=== PATIENT | female | born 1935 | race Caucasian/White ===

== ENCOUNTER 2017-07-25 18:32 | Emergency (ER) | payer OTHER ==
[~2017-07-25] VITALS: Ht 167.6 cm; Wt 68.0 kg
[~2017-07-25 18:32] MED LIST: ACET325 PO; ACYC200 PO; AMLO5 PO; ATOR20 PO; BISA5EC PO; BLISTEX MEDICAT10 GM TOP; BUSP10 PO; Bisac-Evac10 MG RC; Buspirone HCl30 MG PO; CETI5 PO; CITA20 PO; CLOB.05TC TOP; CLON.1 PO; CLOP75 PO; CONESTTC VAG; CYCL0.05OP BOTHEYES; Citalopram HBr20 MG PO; DOCU100 PO; FLUT.05NI; FLUT44OIA INH; FURO20 PO; Flonase 0.05% N16 GM; HYDCHL25 PO; HYDCOR2.5B TOP; IBUP600 PO; LAVAP17G PO; LIDO2TG30 TOP; NAPR220 PO; NEBI10 PO; OXYB5 PO; OXYC5 PO; PANT40 PO; POLY17UD PO; POTA8 PO; POTCHL10ER PO; PRED10 PO; Prednisone20 MG PO; Prinivil10 MG PO; QUET25 PO; ROXICODONE5 MG PO; SOLI5; SOLI5 PO; TOPI100 PO; TRAM50 PO; Ultram50 MG PO
[2017-07-25] MEDS ORDERED: ALPR.25 PO (18:50)
[2017-07-25] MEDS ORDERED: ATOR40TA PO (18:51)
[2017-07-25] MEDS ORDERED: LISI20 PO (18:53)
[2017-07-25 20:04] LABS: BASOPHILS ABSOLUTE AUTO 0.02 K/mm3 (0.00-0.23); BASOPHILS PERCENT AUTO 0 % (0-2); EOSINOPHILS ABSOLUTE AUTO 0.24 K/mm3 (0.00-0.68); EOSINOPHILS PERCENT AUTO 4 % (0-6); Hematocrit 34.3 % (33.0-51.0); Hemoglobin 10.8 g/dL (11.5-16.0); IMMATURE GRAN ABSOLUTE AUTO 0.02 K/mm3 (0.00-0.10); IMMATURE GRAN PERCENT AUTO 0 % (0-1); LYMPHOCYTES ABSOLUTE AUTO 0.95 K/mm3 (0.84-5.20); LYMPHOCYTES PERCENT AUTO 16 % (21-46); MONOCYTES ABSOLUTE AUTO 0.63 K/mm3 (0.16-1.47); MONOCYTES PERCENT AUTO 10 % (4-13); Mean Corpuscular HGB 27.8 pg (26.0-34.0); Mean Corpuscular HGB Conc 31.5 g/dL (31.5-36.5); Mean Corpuscular Volume 88 fL (80-100); Mean Platelet Volume 10.1 fL (9.1-12.4); NEUTROPHILS ABSOLUTE AUTO 4.23 K/mm3 (1.96-9.15); NEUTROPHILS PERCENT AUTO 70 % (41-73); Platelet Count 199 K/mm3 (150-400); RDW Coefficient Variation 14.3 % (11.7-14.2); Red Blood Cell Count 3.88 M/mm3 (3.80-5.20); White Blood Cell Count 6.09 K/mm3 (4.00-11.30)
[2017-07-25 20:05] LABS: Source, Urine Catheter
[2017-07-25 20:05] LABS: Alanine Aminotransfer (ALT/SGP 15 U/L (12-78); Albumin, Blood 3.9 g/dL (3.4-5.0); Albumin/Globulin Ratio 1.3 (0.8-1.8); Alk Phos 80 U/L (50-136); Anion Gap 6 mmol/L (6-16); Aspartate Aminotrans (AST/SGOT 22 U/L (12-37); Bilirubin, Total 0.5 mg/dL (0.1-1.0); Blood Urea Nitrogen 32 mg/dL (8-24); CO2, Blood 29 mmol/L (21-32); Calcium, Blood 9.2 mg/dL (8.5-10.1); Chloride, Blood 106 mmol/L (98-108); Creatinine, Blood 0.94 mg/dL (0.40-1.00); Glomerular Filtration Rate >60 (60-); Glucose, Blood 119 mg/dL (70-99); Potassium, Blood 3.8 mmol/L (3.5-5.5); Sodium, Blood 141 mmol/L (136-145); Total Protein, Blood 6.9 g/dL (6.4-8.2)
[2017-07-25 20:12] LABS: Bilirubin, Urine Neg (Neg); Blood, Urine Neg (Neg); Glucose Qualitative, Urine Neg (Neg); Ketones, Urine Neg (Neg); Leukocyte Esterase, Urine Neg (Neg); Nitrite, Urine Neg (Neg); Protein, Urine Neg (Neg); Urobilinogen, Urine NORM (Normal)
[2017-07-25 20:18] LABS: International Normalized Ratio 1.05; Prothrombin Time Results 10.9 Sec (9.7-11.5)
[2017-07-25 20:23] LABS: Appearance, Urine Clear (Clear); Color, Urine Pale Yellow (P-Yellow)
== END 2017-07-25 21:58 | disposition home or self-care (01) ==
LOC: ER 18:32
PROVIDERS: Physician Assistant
DX: R41.82 Altered mental status, unspecified (principal); Z79.899 Other long term (current) drug therapy; I10 Essential (primary) hypertension; F03.90 Unspecified dementia, unspecified severity, without behavioral disturbance, psychotic disturbance, mood disturbance, and anxiety; Z86.73 Personal history of transient ischemic attack (TIA), and cerebral infarction without residual deficits; K21.9 Gastro-esophageal reflux disease without esophagitis; E78.00 Pure hypercholesterolemia, unspecified; F41.9 Anxiety disorder, unspecified; Z87.891 Personal history of nicotine dependence
CPT/HCPCS: 36415; 70450; 74019; 80053; 81003; 85025; 85610; 99284

== ENCOUNTER 2017-07-26 12:14 | Emergency (ER) | payer OTHER ==
[~2017-07-26] VITALS: Ht 157.5 cm; Wt 51.7 kg
[~2017-07-26 12:14] MED LIST changes: +ALPR.25 PO; +ATOR40TA PO; +LISI20 PO
[2017-07-26 13:02] LABS: BASOPHILS ABSOLUTE AUTO 0.03 K/mm3 (0.00-0.23); BASOPHILS PERCENT AUTO 1 % (0-2); EOSINOPHILS ABSOLUTE AUTO 0.19 K/mm3 (0.00-0.68); EOSINOPHILS PERCENT AUTO 4 % (0-6); Hematocrit 34.7 % (33.0-51.0); Hemoglobin 10.8 g/dL (11.5-16.0); IMMATURE GRAN ABSOLUTE AUTO 0.01 K/mm3 (0.00-0.10); IMMATURE GRAN PERCENT AUTO 0 % (0-1); LYMPHOCYTES ABSOLUTE AUTO 0.77 K/mm3 (0.84-5.20); LYMPHOCYTES PERCENT AUTO 16 % (21-46); MONOCYTES PERCENT AUTO 11 % (4-13); Mean Corpuscular HGB 27.6 pg (26.0-34.0); Mean Corpuscular HGB Conc 31.1 g/dL (31.5-36.5); Mean Corpuscular Volume 89 fL (80-100); Mean Platelet Volume 10.2 fL (9.1-12.4); NEUTROPHILS PERCENT AUTO 68 % (41-73); Platelet Count 186 K/mm3 (150-400); RDW Coefficient Variation 14.2 % (11.7-14.2); RDW Standard Deviation 45.5 fL (35.1-46.3); Red Blood Cell Count 3.92 M/mm3 (3.80-5.20)
[2017-07-26 13:30] LABS: Alanine Aminotransfer (ALT/SGP 19 U/L (12-78); Albumin, Blood 3.8 g/dL (3.4-5.0); Albumin/Globulin Ratio 1.2 (0.8-1.8); Alk Phos 69 U/L (50-136); Anion Gap 7 mmol/L (6-16); Aspartate Aminotrans (AST/SGOT 19 U/L (12-37); Bilirubin, Total 0.6 mg/dL (0.1-1.0); Blood Urea Nitrogen 25 mg/dL (8-24); Bun/Creatinine Ratio 28.9 (12.0-20.0); CO2, Blood 28 mmol/L (21-32); Calcium, Blood 8.9 mg/dL (8.5-10.1); Chloride, Blood 107 mmol/L (98-108); Creatinine, Blood 0.87 mg/dL (0.40-1.00); Globulin, Blood 3.3 g/dL (2.2-4.0); Glomerular Filtration Rate >60 (60-); Glucose, Blood 87 mg/dL (70-99); Potassium, Blood 3.7 mmol/L (3.5-5.5); Sodium, Blood 142 mmol/L (136-145); Total Protein, Blood 7.1 g/dL (6.4-8.2)
== END 2017-07-26 17:59 | disposition home or self-care (01) ==
LOC: ER 12:14
PROVIDERS: Emergency Medicine
DX: R00.1 Bradycardia, unspecified (principal); Z51.81 Encounter for therapeutic drug level monitoring; Z79.899 Other long term (current) drug therapy; I10 Essential (primary) hypertension; F03.90 Unspecified dementia, unspecified severity, without behavioral disturbance, psychotic disturbance, mood disturbance, and anxiety
CPT/HCPCS: 71046; 80053; 83735; 84484; 85025; 93005; 93010; 96360; 96361; 99284; J7030

== ENCOUNTER 2017-08-01 22:10 | Emergency (ER) | payer OTHER ==
[~2017-08-01] VITALS: Ht 167.6 cm; Wt 59.0 kg
[2017-08-01 22:45] LABS: BASOPHILS ABSOLUTE AUTO 0.02 K/mm3 (0.00-0.23); BASOPHILS PERCENT AUTO 1 % (0-2); EOSINOPHILS ABSOLUTE AUTO 0.26 K/mm3 (0.00-0.68); EOSINOPHILS PERCENT AUTO 7 % (0-6); Hematocrit 34.9 % (33.0-51.0); Hemoglobin 11.1 g/dL (11.5-16.0); IMMATURE GRAN ABSOLUTE AUTO 0.01 K/mm3 (0.00-0.10); IMMATURE GRAN PERCENT AUTO 0 % (0-1); LYMPHOCYTES ABSOLUTE AUTO 1.01 K/mm3 (0.84-5.20); LYMPHOCYTES PERCENT AUTO 26 % (21-46); MONOCYTES ABSOLUTE AUTO 0.49 K/mm3 (0.16-1.47); MONOCYTES PERCENT AUTO 13 % (4-13); Mean Corpuscular HGB 28.3 pg (26.0-34.0); Mean Corpuscular HGB Conc 31.8 g/dL (31.5-36.5); Mean Corpuscular Volume 89 fL (80-100); Mean Platelet Volume 10.2 fL (9.1-12.4); NEUTROPHILS ABSOLUTE AUTO 2.09 K/mm3 (1.96-9.15); NEUTROPHILS PERCENT AUTO 54 % (41-73); Platelet Count 189 K/mm3 (150-400); RDW Coefficient Variation 14.1 % (11.7-14.2); RDW Standard Deviation 45.5 fL (35.1-46.3); Red Blood Cell Count 3.92 M/mm3 (3.80-5.20); White Blood Cell Count 3.88 K/mm3 (4.00-11.30)
[2017-08-01 22:45] LABS: Calcium, Ionized (POC) 1.17 mmol/L (1.10-1.46); Chloride (POC) 103 mmol/L (98-108); Creatinine (POC) 0.9 mg/dL (0.6-1.0); Glucose (ISTAT POC) 87 mg/dL (70-99); Hemoglobin (POC) 11.6 g/dL (12.0-16.0); Potassium (POC) 3.9 mmol/L (3.5-5.5); Sodium (POC) 141 mmol/L (135-148); Total CO2 (POC) 27 mmol/L (21-32)
[2017-08-01] MEDS ORDERED: Milk Of Ma400 MG/5 M PO (22:50)
[2017-08-01] MEDS ORDERED: NEBI10 PO (22:50)
[2017-08-01] MEDS ORDERED: OXYC5 PO (22:52)
[2017-08-01] MEDS ORDERED: FURO40 PO (22:52)
[2017-08-01 23:06] LABS: Alanine Aminotransfer (ALT/SGP 15 U/L (12-78); Albumin, Blood 3.8 g/dL (3.4-5.0); Albumin/Globulin Ratio 1.2 (0.8-1.8); Alk Phos 73 U/L (50-136); Anion Gap 8 mmol/L (6-16); Aspartate Aminotrans (AST/SGOT 16 U/L (12-37); Bilirubin, Total 0.4 mg/dL (0.1-1.0); Blood Urea Nitrogen 24 mg/dL (8-24); Bun/Creatinine Ratio 31.2 (12.0-20.0); CO2, Blood 27 mmol/L (21-32); Calcium, Blood 9.1 mg/dL (8.5-10.1); Chloride, Blood 108 mmol/L (98-108); Creatinine, Blood 0.77 mg/dL (0.40-1.00); Globulin, Blood 3.1 g/dL (2.2-4.0); Glomerular Filtration Rate >60 (60-); Glucose, Blood 86 mg/dL (70-99); Potassium, Blood 3.9 mmol/L (3.5-5.5); Sodium, Blood 143 mmol/L (136-145); Total Protein, Blood 6.9 g/dL (6.4-8.2); Troponin I <0.015 ng/mL (0.000-0.040)
[2017-08-01 23:21] LABS: Source, Urine Clean Catch
[2017-08-01 23:28] LABS: Bilirubin, Urine Neg (Neg); Blood, Urine Neg (Neg); Glucose Qualitative, Urine Neg (Neg); Ketones, Urine Neg (Neg); Leukocyte Esterase, Urine Neg (Neg); Nitrite, Urine Neg (Neg); Protein, Urine Neg (Neg); Urobilinogen, Urine NORM (Normal)
[2017-08-01 23:29] LABS: Appearance, Urine Clear (Clear); Color, Urine Pale Yellow (P-Yellow)
== END 2017-08-02 00:37 | disposition home or self-care (01) ==
LOC: ER 22:10
PROVIDERS: Emergency Medicine
DX: I69.919 Unspecified symptoms and signs involving cognitive functions following unspecified cerebrovascular disease (principal); I10 Essential (primary) hypertension; F01.50 Vascular dementia, unspecified severity, without behavioral disturbance, psychotic disturbance, mood disturbance, and anxiety; Z79.899 Other long term (current) drug therapy; F41.9 Anxiety disorder, unspecified; F32.9 Major depressive disorder, single episode, unspecified; Z87.891 Personal history of nicotine dependence
CPT/HCPCS: 36415; 70450; 71046; 80047; 80053; 81003; 84484; 85014; 85025; 93005; 93010; 99284

== ENCOUNTER 2018-05-23 17:12 | Emergency (ER) | payer OTHER ==
[~2018-05-23] VITALS: Ht 162.6 cm; Wt 55.3 kg
[~2018-05-23 17:12] MED LIST changes: -BISA10S PR; -MIRALAX17 GM PO; -NAPR500ERA PO; -OSTEO BI-FLEX1 EAC2 PO; -Zestril30 MG PO
[2018-05-23] MEDS ORDERED: ACET325 PO (17:40)
[2018-05-23] MEDS ORDERED: AMLO5 PO (17:41)
[2018-05-23] MEDS ORDERED: CITA20 PO (17:43)
[2018-05-23] MEDS ORDERED: DOCU100 PO (17:43)
[2018-05-23] MEDS ORDERED: CLOP75 PO (17:43)
[2018-05-23] MEDS ORDERED: Zestril30 MG PO (17:44)
[2018-05-23] MEDS ORDERED: NAPR500ERA PO (17:46)
[2018-05-23] MEDS ORDERED: OSTEO BI-FLEX1 EAC2 PO (17:46)
[2018-05-23] MEDS ORDERED: PANT40 PO (17:47)
[2018-05-23] MEDS ORDERED: MIRALAX17 GM PO (17:48)
[2018-05-23] MEDS ORDERED: POTA8 PO (17:49)
[2018-05-23] MEDS ORDERED: QUET25 PO (17:49)
[2018-05-23] MEDS ORDERED: BISA10S PR (17:52)
[2018-05-23 19:26] LABS: Bilirubin, Urine Neg (Neg); Blood, Urine Neg (Neg); Glucose Qualitative, Urine Neg (Neg); Ketones, Urine Neg (Neg); Leukocyte Esterase, Urine Neg (Neg); Nitrite, Urine Neg (Neg); Protein, Urine Neg (Neg); Source, Urine Clean Catch; Urobilinogen, Urine NORM (Normal)
[2018-05-23 19:43] LABS: Appearance, Urine Clear (Clear); Color, Urine Yellow (P-Yellow)
== END 2018-05-23 20:33 | disposition home or self-care (01) ==
LOC: ER 17:12
PROVIDERS: Emergency Medicine
DX: S60.222A Contusion of left hand, initial encounter (principal); W18.30XA Fall on same level, unspecified, initial encounter; Z79.899 Other long term (current) drug therapy; Z79.891 Long term (current) use of opiate analgesic; I10 Essential (primary) hypertension; F03.90 Unspecified dementia, unspecified severity, without behavioral disturbance, psychotic disturbance, mood disturbance, and anxiety; F41.9 Anxiety disorder, unspecified; Z86.73 Personal history of transient ischemic attack (TIA), and cerebral infarction without residual deficits; Z87.891 Personal history of nicotine dependence
CPT/HCPCS: 51798; 73130; 73502; 73564; 81003; 99283-25

== ENCOUNTER → 2018-05-23 | Outpatient (CLI) | payer OTHER ==
[~2018-05-23] MED LIST changes: +BISA10S PR; +FURO40 PO; +MIRALAX17 GM PO; +Milk Of Ma400 MG/5 M PO; +NAPR500ERA PO; +NEBI5 PO; +OSTEO BI-FLEX1 EAC2 PO; +Zestril30 MG PO
[2018-05-23 19:54] LABS: Appearance, Urine Clear (Clear); Bilirubin, Urine Neg (Neg); Blood, Urine Neg (Neg); Color, Urine Yellow (P-Yellow); Glucose Qualitative, Urine Neg (Neg); Ketones, Urine Neg (Neg); Leukocyte Esterase, Urine Neg (Neg); Nitrite, Urine Neg (Neg); Protein, Urine Neg (Neg); Urobilinogen, Urine NORM (Normal)
== END | disposition home or self-care (01) ==
LOC: LAB SHORT 19:04 → LAB 19:04
PROVIDERS: Nurse Practitioner
DX: N39.0 Urinary tract infection, site not specified (principal)
CPT/HCPCS: 81003; 87086

== ENCOUNTER 2018-05-24 11:07 | Emergency (ER) | payer OTHER ==
[~2018-05-24] VITALS: Ht 162.6 cm; Wt 54.9 kg
[~2018-05-24 11:07] MED LIST changes: +BISA10S PR; +MIRALAX17 GM PO; +NAPR500ERA PO; +OSTEO BI-FLEX1 EAC2 PO; +Zestril30 MG PO
[2018-05-24 11:29] LABS: BASOPHILS ABSOLUTE AUTO 0.03 K/mm3 (0.00-0.23); BASOPHILS PERCENT AUTO 1 % (0-2); EOSINOPHILS ABSOLUTE AUTO 0.24 K/mm3 (0.00-0.68); EOSINOPHILS PERCENT AUTO 5 % (0-6); Hematocrit 38.3 % (33.0-51.0); Hemoglobin 12.3 g/dL (11.5-16.0); IMMATURE GRAN ABSOLUTE AUTO 0.01 K/mm3 (0.00-0.10); IMMATURE GRAN PERCENT AUTO 0 % (0-1); LYMPHOCYTES PERCENT AUTO 16 % (21-46); MONOCYTES ABSOLUTE AUTO 0.44 K/mm3 (0.16-1.47); MONOCYTES PERCENT AUTO 9 % (4-13); Mean Corpuscular HGB 29.3 pg (26.0-34.0); Mean Corpuscular HGB Conc 32.1 g/dL (31.5-36.5); Mean Corpuscular Volume 91 fL (80-100); Mean Platelet Volume 10.2 fL (9.1-12.4); NEUTROPHILS PERCENT AUTO 70 % (41-73); Platelet Count 207 K/mm3 (150-400); RDW Coefficient Variation 13.6 % (11.7-14.2); RDW Standard Deviation 46.1 fL (35.1-46.3); White Blood Cell Count 5.02 K/mm3 (4.00-11.30)
[2018-05-24 11:52] LABS: Alanine Aminotransfer (ALT/SGP 12 U/L (12-78); Albumin/Globulin Ratio 1.2 (0.8-1.8); Alk Phos 66 U/L (50-136); Anion Gap 8 mmol/L (6-16); Aspartate Aminotrans (AST/SGOT 22 U/L (12-37); Bilirubin, Total 0.9 mg/dL (0.1-1.0); Blood Urea Nitrogen 20 mg/dL (8-24); Bun/Creatinine Ratio 24.5 (12.0-20.0); CO2, Blood 28 mmol/L (21-32); Chloride, Blood 106 mmol/L (98-108); Creatinine, Blood 0.82 mg/dL (0.40-1.00); Globulin, Blood 3.4 g/dL (2.2-4.0); Glomerular Filtration Rate >60 (60-); Glucose, Blood 92 mg/dL (70-99); Potassium, Blood 3.6 mmol/L (3.5-5.5); Sodium, Blood 142 mmol/L (136-145); Total Protein, Blood 7.4 g/dL (6.4-8.2)
[2018-05-24 13:16] LABS: Source, Urine Clean Catch
[2018-05-24 13:24] LABS: Appearance, Urine Clear (Clear); Bilirubin, Urine Neg (Neg); Blood, Urine Neg (Neg); Color, Urine Yellow (P-Yellow); Glucose Qualitative, Urine Neg (Neg); Ketones, Urine Neg (Neg); Leukocyte Esterase, Urine Neg (Neg); Nitrite, Urine Neg (Neg); Protein, Urine Neg (Neg); Urobilinogen, Urine NORM (Normal); pH, Urine 6.5 (5.0-8.0)
== END 2018-05-24 16:14 ==
LOC: ER 11:07
PROVIDERS: Emergency Medicine
DX: M25.552 Pain in left hip (principal); G89.29 Other chronic pain; R53.1 Weakness; I10 Essential (primary) hypertension; F03.90 Unspecified dementia, unspecified severity, without behavioral disturbance, psychotic disturbance, mood disturbance, and anxiety; Z79.899 Other long term (current) drug therapy; Z79.02 Long term (current) use of antithrombotics/antiplatelets; Z86.73 Personal history of transient ischemic attack (TIA), and cerebral infarction without residual deficits; Z87.891 Personal history of nicotine dependence; W19.XXXA Unspecified fall, initial encounter
CPT/HCPCS: 80053; 81003; 85025; 93005; 93010; 99284-25

== ENCOUNTER 2018-05-25 11:33 | Emergency (ER) | payer OTHER ==
[~2018-05-25] VITALS: Ht 165.1 cm; Wt 54.4 kg
[2018-05-25 12:41] LABS: BASOPHILS ABSOLUTE AUTO 0.04 K/mm3 (0.00-0.23); BASOPHILS PERCENT AUTO 1 % (0-2); EOSINOPHILS ABSOLUTE AUTO 0.07 K/mm3 (0.00-0.68); EOSINOPHILS PERCENT AUTO 1 % (0-6); Hematocrit 42.9 % (33.0-51.0); Hemoglobin 13.3 g/dL (11.5-16.0); IMMATURE GRAN ABSOLUTE AUTO 0.03 K/mm3 (0.00-0.10); IMMATURE GRAN PERCENT AUTO 0 % (0-1); LYMPHOCYTES ABSOLUTE AUTO 0.39 K/mm3 (0.84-5.20); LYMPHOCYTES PERCENT AUTO 5 % (21-46); MONOCYTES ABSOLUTE AUTO 0.14 K/mm3 (0.16-1.47); MONOCYTES PERCENT AUTO 2 % (4-13); Mean Corpuscular HGB 28.9 pg (26.0-34.0); Mean Corpuscular Volume 93 fL (80-100); Mean Platelet Volume 10.3 fL (9.1-12.4); NEUTROPHILS PERCENT AUTO 91 % (41-73); Platelet Count 243 K/mm3 (150-400); RDW Coefficient Variation 13.4 % (11.7-14.2); White Blood Cell Count 7.47 K/mm3 (4.00-11.30)
--- NOTE | 2018-05-25 12:54 | NUR ---
Called to ER to do a visit for patient. She has been here yesterday for the same complaints. She was sent back to [facility] after diagnostics came back negative for appropriate admitting diagnosis. Pt was sent here again for pain and for 1 episode of emesis. Spoke to Dr. Reeder, reviewed case. Called and spoke to nurse at [facility]. She states the pt was sent over here to the hospital because of an episode pt had today. Apparently when she stood up this morning, she was having diarrhea that ran down her leg. She was placed on the BSC where she proceeded to have a very large, formed, brown stool, followed by what the nurse describes as liquid stool. She then threw up, the nurse states that this was light brown in color and smelled like fecal matter. She reports the pt is now having hallucinations and tells confabulatory tales, which is unusual for her. I thanked the nurse for the additional information. Spoke with nurse Danielle. Updated on new information. Will follow the patient during her hospitalization.
[2018-05-25 12:59] LABS: Albumin, Blood 4.3 g/dL (3.4-5.0); Albumin/Globulin Ratio 1.2 (0.8-1.8); Bilirubin, Total 1.1 mg/dL (0.1-1.0); Bun/Creatinine Ratio 21.8 (12.0-20.0); Calcium, Blood 9.5 mg/dL (8.5-10.1); Creatinine, Blood 1.42 mg/dL (0.40-1.00); Globulin, Blood 3.7 g/dL (2.2-4.0); Potassium, Blood 3.7 mmol/L (3.5-5.5)
--- NOTE | 2018-05-25 14:07 | NUR ---
Recieved call from Dr. Anguiano. She is concerned that patient should not be admitted for comfort measures but should return to [facility]. She reports that this patient wanted to be admitted yesterday because she and her family did not like the facility in which the pt lives. Reviewed my concerns with her: [facility] ill equiped to take care of a patient that is throwing up fecal matter, if her symptoms escalate, she will not be managed. Hospice is not yet set up for the facility and the patient to have symptom management at home. Pt is very high for returning to the ER for symptoms over the weekend. If patient returns to [facility], please include some zofran, roxanol, haldol for hallucinations (current problem, new for the patient per [facility]) in her discharge medications to equip facility in dealing with symptoms. Dr. Dial asks to call and speak to family and get more information. Call placed to only listed phone number. Answering machine picked up, left message for return call. Spoke with nurse, Danielle. Notified of discussion with Dr. Dial. Will remain available.
== END 2018-05-25 16:40 | disposition home or self-care (01) ==
LOC: ER 11:33
PROVIDERS: Emergency Medicine
DX: M25.552 Pain in left hip (principal); G89.29 Other chronic pain; Z79.899 Other long term (current) drug therapy; Z79.891 Long term (current) use of opiate analgesic; I10 Essential (primary) hypertension; F03.90 Unspecified dementia, unspecified severity, without behavioral disturbance, psychotic disturbance, mood disturbance, and anxiety; Z86.73 Personal history of transient ischemic attack (TIA), and cerebral infarction without residual deficits; Z87.891 Personal history of nicotine dependence
CPT/HCPCS: 36415; 80053; 85025; 93005; 93010; 96374; 99284-25; J2405; J7030

== ENCOUNTER 2018-05-27 08:52 | Emergency (ER) | payer OTHER ==
[~2018-05-27] VITALS: Ht 160 cm; Wt 54.9 kg
[2018-05-27 09:50] LABS: BASOPHILS ABSOLUTE AUTO 0.03 K/mm3 (0.00-0.23); BASOPHILS PERCENT AUTO 1 % (0-2); EOSINOPHILS ABSOLUTE AUTO 0.25 K/mm3 (0.00-0.68); EOSINOPHILS PERCENT AUTO 4 % (0-6); Hematocrit 37.3 % (33.0-51.0); Hemoglobin 11.9 g/dL (11.5-16.0); IMMATURE GRAN ABSOLUTE AUTO 0.02 K/mm3 (0.00-0.10); IMMATURE GRAN PERCENT AUTO 0 % (0-1); LYMPHOCYTES ABSOLUTE AUTO 0.69 K/mm3 (0.84-5.20); LYMPHOCYTES PERCENT AUTO 12 % (21-46); MONOCYTES ABSOLUTE AUTO 0.57 K/mm3 (0.16-1.47); MONOCYTES PERCENT AUTO 10 % (4-13); Mean Corpuscular HGB 29.6 pg (26.0-34.0); Mean Corpuscular HGB Conc 31.9 g/dL (31.5-36.5); Mean Corpuscular Volume 93 fL (80-100); Mean Platelet Volume 10.3 fL (9.1-12.4); NEUTROPHILS ABSOLUTE AUTO 4.28 K/mm3 (1.96-9.15); NEUTROPHILS PERCENT AUTO 73 % (41-73); Platelet Count 205 K/mm3 (150-400); RDW Coefficient Variation 13.5 % (11.7-14.2); RDW Standard Deviation 46.1 fL (35.1-46.3); Red Blood Cell Count 4.02 M/mm3 (3.80-5.20); White Blood Cell Count 5.84 K/mm3 (4.00-11.30)
[2018-05-27 10:16] LABS: Albumin, Blood 3.8 g/dL (3.4-5.0); Albumin/Globulin Ratio 1.1 (0.8-1.8); Bilirubin, Total 0.7 mg/dL (0.1-1.0); Calcium, Blood 9.3 mg/dL (8.5-10.1); Creatinine, Blood 1.13 mg/dL (0.40-1.00); Globulin, Blood 3.4 g/dL (2.2-4.0); Potassium, Blood 3.7 mmol/L (3.5-5.5); Total Protein, Blood 7.2 g/dL (6.4-8.2)
== END 2018-05-27 12:27 | disposition home or self-care (01) ==
LOC: ER 08:52
PROVIDERS: Internal Medicine
DX: R41.0 Disorientation, unspecified (principal); M25.552 Pain in left hip; F41.9 Anxiety disorder, unspecified; I10 Essential (primary) hypertension; F03.90 Unspecified dementia, unspecified severity, without behavioral disturbance, psychotic disturbance, mood disturbance, and anxiety; Z87.891 Personal history of nicotine dependence; Z79.899 Other long term (current) drug therapy; Z79.02 Long term (current) use of antithrombotics/antiplatelets
CPT/HCPCS: 36415; 80053; 85025; 99283

== ENCOUNTER → 2018-06-21 | Outpatient (CLI) | payer OTHER ==
[2018-06-21 16:29] LABS: Bilirubin, Urine Neg (Neg); Blood, Urine Neg (Neg); Glucose Qualitative, Urine Neg (Neg); Ketones, Urine Neg (Neg); Leukocyte Esterase, Urine Neg (Neg); Nitrite, Urine Neg (Neg); Protein, Urine Neg (Neg); Urobilinogen, Urine NORM (Normal)
[2018-06-21 16:53] LABS: Appearance, Urine Clear (Clear); Color, Urine Yellow (P-Yellow)
== END | disposition home or self-care (01) ==
LOC: LAB 14:57 → LAB SHORT 14:57
PROVIDERS: Nurse Practitioner
DX: N39.0 Urinary tract infection, site not specified (principal)
CPT/HCPCS: 81003

== ENCOUNTER → 2018-08-31 | Outpatient (CLI) | payer OTHER ==
[2018-08-31 14:08] LABS: Source, Urine Clean Catch
[2018-08-31 14:26] LABS: Appearance, Urine Clear (Clear); Bilirubin, Urine Neg (Neg); Blood, Urine Neg (Neg); Color, Urine Yellow (P-Yellow); Glucose Qualitative, Urine Neg (Neg); Ketones, Urine Neg (Neg); Leukocyte Esterase, Urine 1+ (Neg); Nitrite, Urine Neg (Neg); Protein, Urine Neg (Neg); Urobilinogen, Urine NORM (Normal)
[2018-08-31 14:45] LABS: Bacteria Not Seen /hpf; Red Blood Cells, Urine Not Seen /hpf (0-2); Squamous Epithelial Cells Rare /hpf (Few); White Blood Cells, Urine Not Seen /hpf (0-5)
== END | disposition home or self-care (01) ==
LOC: LAB SHORT 13:05 → LAB 13:05
PROVIDERS: Nurse Practitioner
DX: N39.0 Urinary tract infection, site not specified (principal)
CPT/HCPCS: 81001; 87086

== ENCOUNTER → 2018-09-28 | Outpatient (CLI) | payer OTHER ==
[2018-09-28 12:16] LABS: Appearance, Urine Clear (Clear); Bilirubin, Urine Neg (Neg); Blood, Urine Neg (Neg); Color, Urine Yellow (P-Yellow); Glucose Qualitative, Urine Neg (Neg); Ketones, Urine Neg (Neg); Leukocyte Esterase, Urine Neg (Neg); Nitrite, Urine Neg (Neg); Protein, Urine Neg (Neg); Specific Gravity, Urine 1.015 (1.003-1.022); Urobilinogen, Urine NORM (Normal)
== END | disposition home or self-care (01) ==
LOC: LAB 12:06 → LAB SHORT 12:06
PROVIDERS: Nurse Practitioner
DX: N39.0 Urinary tract infection, site not specified (principal)
CPT/HCPCS: 81003

== ENCOUNTER 2018-10-02 10:49 | Emergency (ER) | payer OTHER ==
[~2018-10-02] VITALS: Ht 162.6 cm; Wt 47.6 kg
[2018-10-02] MEDS ORDERED: NEBI5 PO (12:00)
== END 2018-10-02 12:58 | disposition home or self-care (01) ==
LOC: ER 10:49
DX: S00.83XA Contusion of other part of head, initial encounter (principal); S70.02XA Contusion of left hip, initial encounter; I10 Essential (primary) hypertension; F03.90 Unspecified dementia, unspecified severity, without behavioral disturbance, psychotic disturbance, mood disturbance, and anxiety; Z87.891 Personal history of nicotine dependence; Z79.899 Other long term (current) drug therapy; W18.30XA Fall on same level, unspecified, initial encounter
CPT/HCPCS: 70450; 73502; 96372; 99284-25; J3010

== ENCOUNTER 2019-04-05 14:45 | Inpatient (IN) | payer OTHER ==
[~2019-04-05] VITALS: Ht 154.9 cm; Wt 52.4 kg
[~2019-04-05 14:45] MED LIST changes: -ALBU90OI INH; -FLUT1DIS2 INH; -FURO40 PO; -NAPR500ERA PO; -Prednisone10 MG PO; -Zestril30 MG PO
[2019-04-05] MEDS ORDERED: BUSP10 PO (17:21)
[2019-04-05] MEDS ORDERED: OXYC5 PO (17:22)
[2019-04-05] MEDS ORDERED: NEBI5 PO (17:22)
[2019-04-05] MEDS ORDERED: AMLO5 PO (17:22)
[2019-04-05] MEDS ORDERED: FURO40 PO (17:22)
[2019-04-05] MEDS ORDERED: CITA20 PO (17:23)
[2019-04-05] MEDS ORDERED: POTA8 PO (17:23)
[2019-04-05] MEDS ORDERED: Zestril30 MG PO (17:23)
[2019-04-05] MEDS ORDERED: PANT40 PO (17:23)
[2019-04-05] MEDS ORDERED: NAPR500ERA PO (17:23)
[2019-04-05] MEDS ORDERED: CLOP75 PO (17:23)
[2019-04-05] MEDS ORDERED: QUET25 PO (17:24)
[2019-04-05 19:03] LABS: International Normalized Ratio 1.01; Prothrombin Time Results 10.7 Sec (9.7-11.5)
--- NOTE | 2019-04-05 21:16 | NUR ---
2055 PT ADMITTED TO ROOM 344 PER CART FROM ER.
--- NOTE | 2019-04-06 01:59 | NUR ---
SHIFT SUMMARY: 84 Y/O FEMALE RESTED COMFORTABLY IN BED; RECEIVED 2 UNITS PRBC THIS EVENING (ONE IN ER AND ONE ON THIS SHIFT); HG 6.6 PRIOR INFUSION; ALERT AND ORIENTED X 2; BED ALARM APPLIED; BED LOW POSITION WITH CALL LIGHT AT SIDE.
--- NOTE | 2019-04-06 04:57 | NUR ---
: PATIENT REPORTS URGE TO VOID WHEN LAB IS IN ROOM FOR DRAW. PATIENT HAS BEEN INC. OF URINE. PATIENT IS VERY STIFF AND MOANING WITH ACTIVITY AND REPORTS SHE DOES NOT FEEL STONG ENOUGH TO STAND. PATIENT IS PLACED ON BED CARBAJAL.
[2019-04-06 05:05] LABS: Hematocrit 31.1 % (33.0-51.0); Hemoglobin 9.3 g/dL (11.5-16.0); Mean Corpuscular HGB Conc 29.9 g/dL (31.5-36.5); Mean Platelet Volume 10.2 fL (9.1-12.4); Platelet Count 278 K/mm3 (150-400); RDW Coefficient Variation 17.2 % (11.7-14.2); RDW Standard Deviation 45.5 fL (35.1-46.3); Red Blood Cell Count 4.23 M/mm3 (3.80-5.20); White Blood Cell Count 4.88 K/mm3 (4.00-11.30)
[2019-04-06 05:07] LABS: Mean Corpuscular Volume 74 fL (80-100)
[2019-04-06 05:22] LABS: Anion Gap 9 mmol/L (6-16); Blood Urea Nitrogen 20 mg/dL (8-24); Bun/Creatinine Ratio 30.3 (12.0-20.0); CO2, Blood 25 mmol/L (21-32); Calcium, Blood 8.9 mg/dL (8.5-10.1); Chloride, Blood 108 mmol/L (98-108); Creatinine, Blood 0.66 mg/dL (0.40-1.00); Glomerular Filtration Rate >60 (60-); Glucose, Blood 139 mg/dL (70-99); Potassium, Blood 3.9 mmol/L (3.5-5.5); Sodium, Blood 142 mmol/L (136-145)
--- NOTE | 2019-04-06 06:05 | NUR ---
SHIFT SUMMARY: ASSUMED CARE OF PATIENT AT 0300 AFTER RECIEVING REPORT, PATIENT WAS DTV. PATIENT HAS URGE TO VOID BUT IS FEARFULL OF GETTING UP TO [facility] WITH ASSIST OF 2. COATING MIXER TENDER MD WAS NOTIFIED AND AN ORDER TO BLADDER SCAN PATIENT WAS OBTAINED. BLADDER SCAN SHOWS 387 IN BLADDER. PATIENT IS REPORTING LEFT SIDE PAIN AND REFUSES TO TURN ON TO LEFT SIDE DURING THIS SHIFT, PRN TRAMADOL WAS GIVEN. PATIENT THEN REPORTS THAT SHE WOULD LIKE TO TRY AND TRANSFER TO [facility]. "YESTERDAY I WAS STANDING AND WALKING TO THE BATHROOM". PATIENT IS A HEAVY ASSIST OF 2 TO THE [facility] AND IS ABLE TO VOID 350ML. PATIENT HAD GOOD EFFECT OF TRAMADOL AND IS RESTING COMFORTABLY IN BED. BED ALARM IS ON AND BED IS IN LOW POSITION.
--- NOTE | 2019-04-06 07:56 | NUR ---
CALLED DR JON- PT SINUS BENJA ON TELE AT 45. PT VERY WEAK, RECIEVED 2 UNITS PRBC'S LAST NIGHT CURRENTLY RUNNING D5 1/2 NS WITH 20KCL. BNP ON ADMIT SLIGHTLY OVER 400. ASKED ABOUT POSSIBILITY OF IV LASIX. LUNG SOUNDS COARSE AND WHEEZY, OCCASSIONAL WHEEZY, HACKING COUGH. DR AWARE NO NEW ORDERS AT THIS TIME.
[2019-04-06 09:38] LABS: Adenovirus Not Detected (NOT DETECT); Bordetella pertussis Not Detected (NOT DETECT); Chlamydophila pneumoniae Not Detected (NOT DETECT); Coronavirus 229E Not Detected (NOT DETECT); Coronavirus HKU1 Not Detected (NOT DETECT); Coronavirus NL63 Not Detected (NOT DETECT); Coronavirus OC43 Not Detected (NOT DETECT); Human Metapneumovirus Not Detected (NOT DETECT); Human Rhinovirus/Enterovirus Not Detected (NOT DETECT); Influenza A Not Detected (NOT DETECT); Influenza A/2009-H1 Not Detected (NOT DETECT); Influenza A/H1 Not Detected (NOT DETECT); Influenza A/H3 Not Detected (NOT DETECT); Influenza B Not Detected (NOT DETECT); Mycoplasma pneumoniae Not Detected (NOT DETECT); Parainfluenza Virus 1 Not Detected (NOT DETECT); Parainfluenza Virus 2 Not Detected (NOT DETECT); Parainfluenza Virus 3 Not Detected (NOT DETECT); Parainfluenza Virus 4 Not Detected (NOT DETECT); Respiratory Syncytial Virus Detected (NOT DETECT)
--- NOTE | 2019-04-06 14:48 | NUR ---
ECHOCARDIOGRAM COMPLETE
--- NOTE | 2019-04-06 15:42 | NUR ---
SHIFT SUMMARY- PT HAD AN EPISODE OF BRADYCARDIA THIS MORNING RATE 45 ON TELE. NO MEDICAL Hx OF BRADYCARDIA IN H&P. SPOKE TO EKG DONE AND ECHO DONE. DR FIGUEREDO CAME TO SEE THE PT AND PLANS TO DO AN UPPER ENDOSCOPY TOMORROW PT TO BE NPO AT MIDNIGHT. PT RECIEVED 2 UNITS OF PRBC'S IN THE NIGHT; HGB THIS AM 9.2. PT BP ELEVATED SHEDULED MEDS GIVEN. BETA CONSUELO DC'D (D/T LOW HR). PT WHEEZY WITH RESPIRATIONS AND VERY ANXIOUS ABOUT EVERYTHING. AT ONE POINT SHE APPEARED PANICKED BECAUSE SHE DIDN'T KNOW WHAT TO DO. STAFF RECOMENDED PT TAKE A NAP AND SHE DID. PT HAS SCHEDULED MEDS FOR ANXIETY. PAIN SEEMS WELL MANAGED WITH TRAMADOL. PT VERY UNSURE OF HER ABILITY TO TRANSFER. PT IS W/C BOUND AT BASELINE AND IS A 1PA FOR PIVOT TRANSFERS AND BATHROOM ASSISTANCE. RESPIRATORY PANEL COMPLETED, PT POSSITIVE FOR RSV. SPOKE TO NURSING TOE STRIPPER, IN ADULTS THIS DOES NOT REQUIRE ISOLATION, JUST STANDARD PRECAUTIONS AND HAND WASHING.
--- NOTE | 2019-04-06 22:32 | NUR ---
2013 THIS NURSE GAVE THE FOLLOWING MEDS: BUSPAR 10MG PO; SEROQUEL 25MG PO; SOLUMEDROL 40MG IVP AND THEN WAS UNABLE TO FILE ANY MEDS ON COMPUTER NUMBER: [id number]. THIS NURSE ATTEMPTED TO FILE MEDS ON OTHER MEDS AND DO MANUAL OVERRIDE WITHOUT SUCCESS. INFORMATION TECHNOLOGY WAS NOTIFIED WITHOUT SUCCESS. THIS NURSE ADVISED LEONOR FISCHER RN, CHARGE NURSE.
--- NOTE | 2019-04-07 04:14 | NUR ---
SHIFT SUMMARY: 84 Y/O FEMALE RESTED COMFORTABLY ALL SHIFT; DENIES PAIN OR NAUSEA; PT REQUIRES TO PEOPLE TO STAND, PIVOT AND TRANSFER VIA GAIT BELT ONTO BSC (PT UNABLE TO BEAR WEIGHT AND REQUIRES 100% ASSISTANCE WITH ALL TRANSFERS); ALERT AND ORIENTED X 3; ABLE CALL FOR ASSISTANCE THROUGHOUT SHIFT IF NEEDED; BED ALARM APPLIED, BED LOW POSITION WITH CALL LIGHT AT SIDE; NPO SINCE MIDNIGHT FOR POSSIBLE UGI TEST TODAY.
[2019-04-07 05:00] LABS: Hematocrit 30.1 % (33.0-51.0); Mean Corpuscular HGB Conc 29.9 g/dL (31.5-36.5); Mean Corpuscular Volume 73 fL (80-100); Mean Platelet Volume 9.8 fL (9.1-12.4); Platelet Count 268 K/mm3 (150-400); RDW Coefficient Variation 18.2 % (11.7-14.2); RDW Standard Deviation 47.8 fL (35.1-46.3); White Blood Cell Count 5.01 K/mm3 (4.00-11.30)
[2019-04-07 05:14] LABS: Anion Gap 7 mmol/L (6-16); Blood Urea Nitrogen 18 mg/dL (8-24); Bun/Creatinine Ratio 31.9 (12.0-20.0); CO2, Blood 26 mmol/L (21-32); Calcium, Blood 8.9 mg/dL (8.5-10.1); Chloride, Blood 108 mmol/L (98-108); Creatinine, Blood 0.56 mg/dL (0.40-1.00); Glomerular Filtration Rate >60 (60-); Glucose, Blood 129 mg/dL (70-99); Potassium, Blood 4.3 mmol/L (3.5-5.5); Sodium, Blood 141 mmol/L (136-145)
--- NOTE | 2019-04-07 16:59 | NUR ---
History, Chart, Medications and Allergies reviewed before start of procedure.Lungs WITH WHEEZES. Patient confirms NPO status and agrees with scheduled surgery.
--- NOTE | 2019-04-07 17:29 | NUR ---
04/07/19 1729 [place] History, Chart, Medications and Allergies reviewed before start of procedure. PATIENT CONFIRMS NPO STATUS AND AGREES WITH SCHEDULED PROCEDURE. O2 VIA N/C INTACT THROUGHOUT SEDATION/PROCEDURE. 3-LEAD EKG REVIEWED WITH PHYSICIAN PRIOR TO START OF PROCEDURE.Bite Block Placed. MONITOR INTACT WITH CONTINUOUS PULSE OXIMETRY AND INTERMITTENT BP. PATIENT DETERMINED TO BE ASA APPROPRIATE FOR PROPOFOL SEDATION PRIOR TO START OF PROCEDURE BY DR. FIGUEREDO.
--- NOTE | 2019-04-07 18:52 | NUR ---
SHIFT SUMMARY PT HAS NO ACUTE CHANGES THIS SHIFT, PT HAS DECLINED REPOSITIONG Q 2HRS AND DECLINED SITTING IN THE CHAIR. PT WAS NPO AFTER 1400 AND DAY SURGERY REPORTS PT HAVING NUTS IN STOMACH AND REPORTING DAUGHTER GAVE THEM TO HER. PT TOLERATED ENDOSCOPE PER DAY SURGERY. PT DIET IS ADVANCE TOLERATED, PT EATING DINNER. PT CALL LIGHT IS WITH IN REACH. MEDICATED X1 FOR PAIN. WILL CONTINUE TO MONITOR AND REPORT TO COMING SHIFT.
--- NOTE | 2019-04-07 19:40 | NUR ---
PATIENT IN ROOM, DAUGHTER JUST BROUGHT HER A FISH SANDWICH FROM [employer]. TRIED TELLLING HER DAUGHTER THAT SHE COULD NOT SWALLOW IT, IT WAS TO DRY BUT DAUGHTER CONTINUED TO INSIST SHE EAT IT. SHE ASKED ABOUT HER ENDOSCOPE TODAY, INFORMED HER DAUGHTER THAT THEY FOUND NUTS IN HER SYSTEM, DAUGHTER SAID SHE ONLY GAVE HER A FEW. INFORMED HER THAT SHE WAS NOT SUPPOSE TO HAVE ANYTHING BY MOUTH THAT IT DISRUPTS THE TEST. SHE SAID HER MOTHER WAS HUNGRY SO SHE GAVE THEM TO HER DISPITE KNOWING SHE WAS NOT SUPPOSE TO HAVE ANYTHING. TRIED TO DISCUSS REASONING BEHIND IT AND SHE WOULD NOT LISTEN. JUST LEFT CONVERSATION ALONE. CALL LIGHT WAS IN REACH. CHECKED TELE THEY REPORTED SHE HAS NOT BEEN ON SINCE 1600. LEAD WAS OFF, FIXED THAT. CALLED AND VERFIED THEY WERE GETTING READING. WILL CONTINUE TO MONITOR.
--- NOTE | 2019-04-08 03:12 | NUR ---
ATTEMPTED TO POSITION THE PATIENT OFF HER RIGHT HIP SLIGHTLY WITH A PILLOW. THE PATIENT REFUSED TO HAVE ANY OTHER POSITION OTHER THEN LAYING ON HER RIGHT HIP. WE TRIED SEVERAL TIMES TO EVEN BETWEEN HER KNEES AND SHE REFUSED. THERE IS STARTING OF REDNESS TO HER RIGHT HIP AND BETWEEN THE KNEES, REDNESS IS BLANCHABLE AT THIS TIME. WILL CONTINUE TO ENCOURAGE POSITION CHANGE.
--- NOTE | 2019-04-08 05:04 | NUR ---
SHIFT SUMMARY: 84 Y/O FEMALE ADMITTED FOR ANEMIA. [place]PCI[place]N HAS BEEN PLEASANT BUT NEEDING CONSTANT GUIDANCE IN EVERY STEP SHE DOES. SHE HAD A SLIGHTLY ROUGH NIGHT NOT BEING ABLE TO GET COMFORTABLE BUT REFUSING TO MOVE OFF HER RIGHT HIP. SHE DENIED ANY SOB, DIZZINESS, BUT DID SHOW SIGNS OF WEAKNESS. SHE NEEDED TWO ASSIST TO THE BSC PRN. SHE TOOK MEDS WITH WATER. WAS ABLE TO USE THE CALL LIGHT AT TIMES BUT OTHER TIMES CALLED OUT FOR HELP. TELEMETRY SHOWED SINUS THROUGHOUT THE NIGHT. NO OTHER ACUTE CHANGES WERE NOTED. WILL REPORT TO DAY SHIFT RN.
[2019-04-08 11:39] LABS: BASOPHILS PERCENT AUTO 0 % (0-2); EOSINOPHILS PERCENT AUTO 0 % (0-6); Hematocrit 32.2 % (33.0-51.0); Hemoglobin 9.6 g/dL (11.5-16.0); IMMATURE GRAN ABSOLUTE AUTO 0.07 K/mm3 (0.00-0.10); IMMATURE GRAN PERCENT AUTO 1 % (0-1); LYMPHOCYTES ABSOLUTE AUTO 0.35 K/mm3 (0.84-5.20); LYMPHOCYTES PERCENT AUTO 5 % (21-46); MONOCYTES ABSOLUTE AUTO 0.29 K/mm3 (0.16-1.47); MONOCYTES PERCENT AUTO 4 % (4-13); Mean Corpuscular HGB 22.1 pg (26.0-34.0); Mean Corpuscular HGB Conc 29.8 g/dL (31.5-36.5); Mean Corpuscular Volume 74 fL (80-100); Mean Platelet Volume 9.4 fL (9.1-12.4); NEUTROPHILS ABSOLUTE AUTO 6.27 K/mm3 (1.96-9.15); NEUTROPHILS PERCENT AUTO 90 % (41-73); Platelet Count 291 K/mm3 (150-400); RDW Coefficient Variation 19.1 % (11.7-14.2); RDW Standard Deviation 50.3 fL (35.1-46.3); Red Blood Cell Count 4.35 M/mm3 (3.80-5.20); White Blood Cell Count 6.98 K/mm3 (4.00-11.30)
[2019-04-08 11:55] LABS: Anion Gap 6 mmol/L (6-16); Blood Urea Nitrogen 18 mg/dL (8-24); CO2, Blood 26 mmol/L (21-32); Calcium, Blood 9.2 mg/dL (8.5-10.1); Chloride, Blood 106 mmol/L (98-108); Creatinine, Blood 0.58 mg/dL (0.40-1.00); Glomerular Filtration Rate >60 (60-); Glucose, Blood 127 mg/dL (70-99); Potassium, Blood 4.1 mmol/L (3.5-5.5); Sodium, Blood 138 mmol/L (136-145)
--- NOTE | 2019-04-08 12:15 | NUR ---
Upon receiving an admit referral for spiritual care, I visit patient. As I am standing, waiting to go into patient's room, patient's FUSE COILER is told that patient needs to use the bathroom. I walk into patient's room and introduce myself and the departmnet I am from and then sit near patient. She thanks me for visiting and then tells me that she doesn't know what to do. I ask, "about what?" Patient tells me that she has to use the bathroom, I tell her that the staff has been told. Patient then tells me that she is a [employer]alism, and she affirms that she would like me to say a prayer. I gladly provide prayer. Patient then just keeps repeating that she does not know what to do. I then step out and tell patient's RN who immediately responds to patient's need. I will continue to remain available to patient and family.
--- NOTE | 2019-04-08 13:06 | NUR ---
[facility] NOTIFIED OF DISCHARGE TIME, TRANSPORT SET UP WITH [facility] W/C TRANSPORT. MEDS FAXED TO [facility].
[2019-04-08] MEDS ORDERED: ALBU90OI INH (13:17)
[2019-04-08] MEDS ORDERED: FLUT1DIS2 INH (13:18)
[2019-04-08] MEDS ORDERED: Prednisone10 MG PO (13:20)
--- NOTE | 2019-04-08 15:02 | NUR ---
DISCHARGE SUMMARY PT D/C TO [facility]. TRANSPORTED BY [facility]. PT STABLE. [facility] SENT WITH PT AND REPORT CALLED TO FACILITY RN, MARGARETH FAXED.
--- NOTE | 2019-04-08 15:37 | NUR ---
PT DISCHARGED VIA [facility] W/C TRANSPORT AT 1536 BACK TO [facility].
== END 2019-04-08 15:12 | disposition home or self-care (01) | DRG 377 ==
LOC: ER 14:45 → MEDS 18:38
PROVIDERS: Internal Medicine; Internal Medicine Gastroenterology; ADMIT Internal Medicine Endocrinology, Diabetes & Metabolism
PROC: 0DJ08ZZ Inspection of Upper Intestinal Tract, Via Natural or Artificial Opening Endoscopic (ICD-10-PCS; principal; 2019-04-07 12:45)
DX: K29.01 Acute gastritis with bleeding (principal); J96.01 Acute respiratory failure with hypoxia; D62 Acute posthemorrhagic anemia; J45.21 Mild intermittent asthma with (acute) exacerbation; T39.395A Adverse effect of other nonsteroidal anti-inflammatory drugs [NSAID], initial encounter; J20.9 Acute bronchitis, unspecified; F41.8 Other specified anxiety disorders; F03.90 Unspecified dementia, unspecified severity, without behavioral disturbance, psychotic disturbance, mood disturbance, and anxiety; I10 Essential (primary) hypertension; K59.09 Other constipation; M19.91 Primary osteoarthritis, unspecified site; Z86.73 Personal history of transient ischemic attack (TIA), and cerebral infarction without residual deficits; Z87.891 Personal history of nicotine dependence; Z85.828 Personal history of other malignant neoplasm of skin
CPT/HCPCS: 0099U; 36415; 36430; 80048; 82272; 83605; 83880; 84145; 84484; 85025; 85027; 85610; 85730; 86850; 86900; 86901; 86923; 87040; 93005; 93010; 93306; 94640; 94760; 97162; 97166; 97530; 97535; 99285-25; C9113; J2704; J2920; J7030; J7050; J7120; P9016

== ENCOUNTER → 2019-04-05 | Outpatient (CLI) | payer OTHER ==
[~2019-04-05] MED LIST changes: +ALBU90OI INH; +FLUT1DIS2 INH; +Prednisone10 MG PO
[2019-04-05 13:14] LABS: BASOPHILS ABSOLUTE AUTO 0.02 K/mm3 (0.00-0.23); BASOPHILS PERCENT AUTO 0 % (0-2); EOSINOPHILS ABSOLUTE AUTO 0.26 K/mm3 (0.00-0.68); EOSINOPHILS PERCENT AUTO 6 % (0-6); Hematocrit 23.8 % (33.0-51.0); Hemoglobin 6.6 g/dL (11.5-16.0); IMMATURE GRAN ABSOLUTE AUTO 0.02 K/mm3 (0.00-0.10); IMMATURE GRAN PERCENT AUTO 0 % (0-1); LYMPHOCYTES ABSOLUTE AUTO 0.69 K/mm3 (0.84-5.20); LYMPHOCYTES PERCENT AUTO 15 % (21-46); MONOCYTES ABSOLUTE AUTO 0.48 K/mm3 (0.16-1.47); MONOCYTES PERCENT AUTO 11 % (4-13); Mean Corpuscular HGB 19.5 pg (26.0-34.0); Mean Corpuscular HGB Conc 27.7 g/dL (31.5-36.5); Mean Corpuscular Volume 70 fL (80-100); Mean Platelet Volume 10.2 fL (9.1-12.4); NEUTROPHILS ABSOLUTE AUTO 3.11 K/mm3 (1.96-9.15); NEUTROPHILS PERCENT AUTO 68 % (41-73); Platelet Count 279 K/mm3 (150-400); RDW Coefficient Variation 16.9 % (11.7-14.2); RDW Standard Deviation 43.2 fL (35.1-46.3); Red Blood Cell Count 3.38 M/mm3 (3.80-5.20); White Blood Cell Count 4.58 K/mm3 (4.00-11.30)
[2019-04-05 13:25] LABS: Alanine Aminotransfer (ALT/SGP 9 U/L (12-78); Albumin/Globulin Ratio 1.3 (0.8-1.8); Alk Phos 64 U/L (40-126); Anion Gap 12 mmol/L (6-16); Aspartate Aminotrans (AST/SGOT 14 U/L (12-37); Bilirubin, Total 0.4 mg/dL (0.1-1.0); Blood Urea Nitrogen 21 mg/dL (8-24); Bun/Creatinine Ratio 24.4 (12.0-20.0); CO2, Blood 27 mmol/L (21-32); Calcium, Blood 9.4 mg/dL (8.5-10.1); Chloride, Blood 106 mmol/L (98-108); Creatinine, Blood 0.86 mg/dL (0.40-1.00); Glomerular Filtration Rate >60 (60-); Glucose, Blood 87 mg/dL (70-99); Potassium, Blood 3.9 mmol/L (3.5-5.5); Sodium, Blood 145 mmol/L (136-145)
[2019-04-05 14:00] LABS: Free Thyroxine 1.06 ng/dL (0.70-1.60); Thyroid Stimulating Hormone 0.782 uIU/mL (0.360-4.800)
== END ==
LOC: LAB SHORT 13:08 → LAB EV 13:08
PROVIDERS: General Practice
DX: R09.02 Hypoxemia (principal); R53.83 Other fatigue
CPT/HCPCS: 80053; 83880; 84439; 84443; 84484; 85025

== ENCOUNTER → 2019-05-01 | Outpatient (CLI) | payer OTHER ==
[~2019-05-01] MED LIST changes: +ALBU90OI INH; +FLUT1DIS2 INH; +FURO40 PO; +NAPR500ERA PO; +Prednisone10 MG PO; +Zestril30 MG PO
[2019-05-01 18:06] LABS: Bilirubin, Urine Neg (Neg); Blood, Urine Neg (Neg); Glucose Qualitative, Urine Neg (Neg); Ketones, Urine Neg (Neg); Leukocyte Esterase, Urine Neg (Neg); Nitrite, Urine Neg (Neg); Protein, Urine Neg (Neg); Specific Gravity, Urine 1.015 (1.003-1.022); Urobilinogen, Urine NORM (Normal)
[2019-05-01 18:13] LABS: Appearance, Urine Clear (Clear); Color, Urine Yellow (P-Yellow)
== END | disposition home or self-care (01) ==
LOC: LAB SHORT 16:34 → LAB 16:34
PROVIDERS: Nurse Practitioner
DX: N39.0 Urinary tract infection, site not specified (principal)
CPT/HCPCS: 81003

== ENCOUNTER → 2019-09-19 | Outpatient (CLI) | payer OTHER ==
[2019-09-19 22:33] LABS: Bilirubin, Urine Neg (Neg); Blood, Urine Neg (Neg); Glucose Qualitative, Urine Neg (Neg); Ketones, Urine Neg (Neg); Leukocyte Esterase, Urine Neg (Neg); Nitrite, Urine Neg (Neg); Protein, Urine Neg (Neg); Specific Gravity, Urine 1.015 (1.003-1.022); Urobilinogen, Urine NORM (Normal)
[2019-09-19 22:38] LABS: Appearance, Urine Clear (Clear); Color, Urine Yellow (P-Yellow)
== END | disposition home or self-care (01) ==
LOC: LAB 22:27 → LAB SHORT 22:27
PROVIDERS: Nurse Practitioner
DX: N39.0 Urinary tract infection, site not specified (principal)
CPT/HCPCS: 81003; 87086

== ENCOUNTER 2019-10-05 23:03 | Emergency (ER) | payer OTHER ==
[~2019-10-05] VITALS: Ht 162.6 cm; Wt 49.9 kg
== END 2019-10-06 01:08 | disposition home or self-care (01) ==
LOC: ER 23:03
DX: M25.552 Pain in left hip (principal); G89.29 Other chronic pain; Z88.1 Allergy status to other antibiotic agents; Z88.8 Allergy status to other drugs, medicaments and biological substances; Z79.899 Other long term (current) drug therapy; F41.9 Anxiety disorder, unspecified; F32.9 Major depressive disorder, single episode, unspecified; J45.909 Unspecified asthma, uncomplicated; Z87.891 Personal history of nicotine dependence; Z86.73 Personal history of transient ischemic attack (TIA), and cerebral infarction without residual deficits; W18.2XXA Fall in (into) shower or empty bathtub, initial encounter
CPT/HCPCS: 73502; 99283-25